=== PATIENT | female | born 1960 | race Caucasian/White ===

== ENCOUNTER → 2017-03-12 | Outpatient (CLI) | payer OTHER | LOC: BMCIMAGING 15:23 | PROVIDERS: ATTEND Family Medicine | DX: Z13.820 Encounter for screening for osteoporosis (principal) ==

== ENCOUNTER 2017-09-02 22:13 | Emergency (ER) | payer OTHER ==
--- NOTE | 2017-09-02 22:23 | EDPHY ---
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 She states this started approximately 35 min to an hour ago. She states the only thing new was that she pulled grass and leads from her garden she is unsure if she is allergic to something. She denies trouble breathing. Denies trouble swallowing. Denies vomiting abdominal cramps chest pain or shortness of breath. Denies fever. States she has been taking a vitamin with some niacin in it. She is unsure if this is a flushing from niacin or rather allergic reaction. Upon arrival to the emergency room she is hemodynamically stable no acute distress. Past Medical History: Hypothyroidism Past Surgical History: Toe surgery Social History: Denies daily drugs alcohol tobacco. Family History: Noncontributory ROS REVIEW OF SYSTEMS: A comprehensive 10 point review of systems is otherwise negative aside from elements mentioned in the history of present illness. Exam Constitutional appears well nontoxic no acute distress, triage nursing summary reviewed, vital signs reviewed, awake/alert. Eyes normal conjunctivae and sclera, EOMI, PERRLA. HENT normal inspection, atraumatic, moist mucus membranes, no epistaxis, neck supple/ no meningismus, no raccoon eyes. Respiratory clear to auscultation bilaterally, normal breath sounds, no respiratory distress, no wheezing. Cardiovascular rate normal, regular rhythm, no murmur, no edema, distal pulses normal. Gastrointestinal soft, non-tender, no rebound, no guarding, normal bowel sounds, no distension, no pulsatile mass. Genitourinary no CVA tenderness. Musculoskeletal no midline vertebral tenderness, full range of motion, no calf swelling, no tenderness of extremities, no meningismus, good pulses, neurovascularly intact. Skin diffuse erythema blanchable, not raised, worse on the arms chest and back. Neurologic awake, alert and oriented x 3, AAOx3, moves all 4 extremities equally, motor intact, sensory intact, CN II-XII intact, normal cerebellar, normal vision, normal speech. Psychiatric normal mood/affect. Heme/Lymph/Immune no lymphadenopathy. Differential Diagnosis: Includes but is not limited to in a particular order acute allergic reaction, anaphylaxis, medication reaction Medical Decision Making: Plan for this patient IV establishment with IV Solu- Medrol 125 mg, IV Benadryl 25 mg, IV Pepcid 20 mg re-evaluate. Re-evaluation: 1237: Patient received IV Solu-Medrol IV fluids IV Benadryl and IV Pepcid. On re-examination she is much improved. Her erythematous rash has resolved completely. She denies any trouble breathing or trouble swallowing. She is not vomiting. She is requesting be discharged home. Infectious requested multiple times to be discharged. She has been monitored for over 2 hr. There has been no progression of symptoms. A placed on prednisone, Benadryl, Zantac for the next 3 days. Additionally she understands return emergency room she develops worsening symptoms this includes worsening shortness of breath, pain, recurrence of allergic reaction. Source: Patient - Personal History Current Tetanus/Diphtheria Vaccine: Yes Current Tetanus Diphtheria and Acellular Pertussis (TDAP): Yes - Medical/Surgical History Hx Asthma: No Hx Chronic Respiratory Disease: No Hx Diabetes: No Hx Cardiac Disease: No Hx Renal Disease: No Hx Cirrhosis: No Hx Alcoholism: No Hx HIV/AIDS: No Hx Splenectomy or Spleen Trauma: No Other PMH: left foot sugery - Social History Smoking Status: Never smoked Constitutional: Initial Vital Signs Temperature (C) 36.4 C 09/02/17 22:18 Heart Rate 47 L 09/02/17 22:18 Respiratory Rate 16 09/02/17 22:18 Blood Pressure 129/70 H 09/02/17 22:18 O2 Sat (%) 99 09/02/17 22:18 O2 Delivery Mode Room Air Allergies/Adverse Reactions: amoxicillin [From Augmentin] Allergy (Verified 09/02/17 22:22) clavulanic acid [From Augmentin] Allergy (Verified 09/02/17 22:22) Home Medications: Medication Instructions Recorded Estrogen Dose Unk 04/30/12 Prilosec Dose Unk 04/30/12 Progesterone Dose Unk 04/30/12 Synthroid Dose Unk 04/30/12 Ranitidine HCl [Zantac] 150 mg PO DAILY #3 tablet 09/02/17 diphenhydrAMINE [Benadryl 25 MG 25 mg PO BID #6 tab 09/02/17 (*)] predniSONE 60 mg PO DAILY #9 tab 09/02/17 Medical Decision Making - Data Points Medications Given: Discontinued Medications Diphenhydramine HCl (Benadryl Injection) 25 mg IVP EDNOW ONE Stop: 09/02/17 22:32 Last Admin: 09/02/17 22:36 Dose: 25 mg Famotidine (Pepcid) 20 mg IVP EDNOW ONE Stop: 09/02/17 22:32 Last Admin: 09/02/17 22:36 Dose: 20 mg Sodium Chloride (Ns) 1,000 mls @ 0 mls/hr IV ONCE ONE PRN Reason: Wide Open Stop: 09/02/17 22:32 Last Admin: 09/02/17 22:35 Dose: 1,000 mls Methylprednisolone Sodium Succinate (Solu-Medrol) 125 mg IVP EDNOW ONE Stop: 09/02/17 22:32 Last Admin: 09/02/17 22:36 Dose: 125 mg Departure - Departure Disposition: Home, Routine, Self-Care Clinical Impression: Allergic reaction Qualifiers: Encounter type: initial encounter Qualified Code(s): T78.40XA - Allergy, unspecified, initial encounter Condition: Good Instructions: Urticaria (ED), Allergies (ED) Additional Instructions: 1. Return emergency room if you have worsening allergic reaction symptoms worsening rash, trouble breathing, vomiting, trouble swallowing. 2. Prednisone for next 3 days. 3. Benadryl for the next 3 days 4. Zantac for the next 3 days Referrals: YINA HERRERA [Primary Care Provider] - As per Instructions Prescriptions: diphenhydrAMINE [Benadryl 25 MG (*)] 25 mg PO BID #6 tab predniSONE 60 mg PO DAILY #9 tab Ranitidine HCl [Zantac] 150 mg PO DAILY #3 tablet
[2017-09-02] MEDS ORDERED: NS 1,000 ML IV ONE (22:31)
[2017-09-02] MEDS ORDERED: FAMOTIDINE 20 MG/2 ML SDV IVP ONE (22:31)
[2017-09-02] MEDS ORDERED: methylPREDNISolone SOD SUCC 125 MG/2 ML VIAL IVP ONE (22:31)
[2017-09-03 00:41] VITALS: BP 118/59
== END 2017-09-03 00:40 | disposition home or self-care (01) ==
DX: T78.49XA Other allergy, initial encounter (principal)
CPT/HCPCS: 96374; J1200; J2930

== ENCOUNTER → 2018-05-24 | Outpatient (CLI) | payer OTHER | LOC: FIMAGING 14:07 | PROVIDERS: ATTEND Internal Medicine | DX: Z12.31 Encounter for screening mammogram for malignant neoplasm of breast (principal) ==

== ENCOUNTER → 2018-09-14 | Outpatient (CLI) | payer OTHER ==
[~2018-09-14] MED LIST: GADOBUTROL 10 ML VIAL IVP ONE
== END ==
LOC: FIMAGING 14:55
PROVIDERS: ATTEND Orthopaedic Surgery Sports Medicine
DX: M71.21 Synovial cyst of popliteal space [Baker], right knee (principal)
CPT/HCPCS: A9585